=== PATIENT | female | born 1990 | race Caucasian/White ===

== ENCOUNTER 2019-09-01 07:22 | Day surgery (SDC) | payer OTHER, MEDICAID ==
--- NOTE | 2019-08-28 08:45 | CONSULTATION NOTE ---
Consultation Report: I saw this young lady today. She is a very pleasant. 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 Her mother answered the questions for me. The patient has had a few surgeries in the past without any anesthesia related complications. She is very active, plays sports. She denies any chest pain/pressure or SOB. She denies any respiratory problems. She has a good mouth opening, Malampati 1. She is otherwise relatively healthy.I discussed the anesthetic plan with the mother. The mother had no further questions for me.
[~2019-09-01 07:22] MED LIST: CEFOTETAN DISODIUM 1 GM VIAL ONE
[2019-09-01] MEDS ORDERED: LACTATED RINGERS 1,000 ML IV ONE ×2 (07:34→10:27)
[2019-09-01 08:01] LABS: HCG UR QUAL NEGATIVE
--- NOTE | 2019-09-01 08:22 | ANESTHESIA ---
Pre-Anesthesia VS, & Labs - Diagnosis symptomatic cholelithiasis - Procedure laparoscopic cholecystectomy Vital Signs: Temp Pulse Resp BP Pulse Ox 36 C L 72 12 133/79 H 97 09/01/19 07:40 09/01/19 07:40 09/01/19 07:40 09/01/19 07:40 09/01/19 07:40 Height 5 ft 1 in Weight (kg) 89.5 kg - NPO >8 hours - Is Patient ?: No - Lab Results Lab results reviewed: Yes Home Medications and Allergies Home Medications: Ambulatory Orders Ibuprofen [Motrin] 600 mg PO Q6H PRN 08/28/19 Omeprazole 20 mg PO DAILY 08/28/19 Ondansetron HCl [Zofran] 4 mg PO Q8HR PRN 08/28/19 Pnv No.95/Ferrous Fum/Folic AC [ Caplet] 1 each PO DAILY 08/28/19 Sertraline HCl [Zoloft] 100 mg PO BID 08/28/19 raNITIdine [Zantac] 150 mg PO BID PRN 08/28/19 Ibuprofen [Motrin] 600 mg PO Q6H PRN 08/28/19 Omeprazole 20 mg PO DAILY 08/28/19 Ondansetron HCl [Zofran] 4 mg PO Q8HR PRN 08/28/19 Pnv No.95/Ferrous Fum/Folic AC [ Caplet] 1 each PO DAILY 08/28/19 Sertraline HCl [Zoloft] 100 mg PO BID 08/28/19 raNITIdine [Zantac] 150 mg PO BID PRN 08/28/19 Allergies/Adverse Reactions: Allergies Allergy/AdvReac Type Severity Reaction Status Date / Time bacitracin Allergy "eats skin" Verified 08/28/19 08:56 [From Neosporin ([id number])] neomycin Allergy "eats skin" Verified 08/28/19 08:56 [From Neosporin ([id number])] polymyxin B Allergy "eats skin" Verified 08/28/19 08:56 [From Neosporin ([id number])] sulfamethoxazole Allergy Rash Verified 08/28/19 08:56 [From Bactrim] trimethoprim [From Bactrim] Allergy Rash Verified 08/28/19 08:56 Anes History & Medical History - Anesthetic History Anesthesia Complications: reports: No previous complications Family history of Anesthesia Complications: Denies Family history of Malignant Hyperthermia: Denies - Medical History Cardiovascular: reports: Valve disorder (ASD repair 2001) Pulmonary: reports: Pneumonia Gastrointestinal: reports: GERD (well controlled with meds), Colon polyps Urinary: reports: None Musculoskeletal: reports: Other Endocrine/Autoimmune: reports: Other Skin: reports: None Other Past Medical History: Arcadio syndrome - Surgical History General: Appendectomy, Colonoscopy, EGD Eyes Ears Nose Throat (EENT): Other Cardiothoracic: Other Exam General: Alert, Oriented x3, Cooperative Dental: WNL Mouth Opening: Greater than 4 Fingerbreadths Neck Mobility: Normal Mallampati classification: I Thyromental Distance: greater than 6 cm Respiratory: Lungs clear, Normal breath sounds, No respiratory distress Cardiovascular: Regular rate Neurological: Normal speech Mental/Cognitive Status: Alert/Oriented X3, Normal for patient Plan Anesthesia Type: General Consent for Procedure(s) Verified and Reviewed: Yes Code Status: Attempt Resuscitation ASA classification: 2-Mild systemic disease Is this case an emergency?: No
[2019-09-01] MEDS ORDERED: ONDANSETRON 4 MG/2 ML VIAL IVP PRN (08:24)
[2019-09-01] MEDS ORDERED: HYDROmorphone 0.5 MG/0.5 ML SYRINGE IVP PRN (08:24)
[2019-09-01] MEDS ORDERED: oxyCODONE 5 MG TABLET PO PRN (08:24)
[2019-09-01] MEDS ORDERED: BUPIVACAINE 0.5% PF 30 ML VIAL ONE (08:38)
[2019-09-01] MEDS ORDERED: LIDOCAINE 1%-EPI 1:100000 20 ML MDV ONE (08:38)
[2019-09-01] MEDS ORDERED: ROCURONIUM 50 MG/5 ML VIAL IVP ONE (08:43)
[2019-09-01] MEDS ORDERED: ONDANSETRON 4 MG/2 ML VIAL IVP ONE (08:43)
[2019-09-01] MEDS ORDERED: DEXAMETHASONE 4 MG/ML VIAL IVP ONE (08:43)
[2019-09-01] MEDS ORDERED: PROPOFOL 200 MG/20 ML VIAL IVP ONE (08:43)
[2019-09-01] MEDS ORDERED: NEOSTIGMINE 1 MG/1 ML 10 ML MDV IVP ONE (08:43)
[2019-09-01] MEDS ORDERED: GLYCOPYRROLATE 1 MG/5 ML VIAL IVP ONE (08:43)
[2019-09-01] MEDS ORDERED: fentaNYL 250 MCG/5 ML VIAL IVP ONE (08:43)
[2019-09-01] MEDS ORDERED: MIDAZOLAM 2 MG/2 ML VIAL IVP ONE (08:43)
[2019-09-01] MEDS ORDERED: KETOROLAC 30 MG/ML VIAL IVP ONE (08:43)
[2019-09-01] MEDS ORDERED: BUPIVACAINE 0.5% PF 30 ML VIAL SUBQ ONE ×2 (08:49)
[2019-09-01] MEDS ORDERED: LIDOCAINE MPF 1%-EPI 1:200000 30 ML VIAL SUBQ ONE ×2 (08:49)
--- NOTE | 2019-09-01 10:10 | OPERATIVE REPORT ---
Operative Report - General Procedure Date: 09/01/19 Pre-Op Diagnosis: Symptomatic Cholelithiasis Procedure Performed: Laparoscopic Cholecystectomy Post Op Diagnosis: same - Procedure Note Primary Surgeon: Ramandeep Madrid MD Anesthesia Provider: CORBIN Anesthesia Technique: General ET tube Pathology: gallbladder Estimated Blood Loss (mL): 10 Indications: 29yo F with symptomatic cholelithiasis. All risks, benefits, and alternatives reviewed with patient and her parents given her developmental delays and they all wish to proceed. Findings: mild chronic inflammation of gallbladder Complications: none - Other Other Information/Narrative: The patient was taken to the operating room and placed on operating table in supine position. The abdomen was prepped and draped in sterile fashion and a time out is performed with the team present. Local anesthesia was used to infiltrate each site prior to incision. Using a 15-blade scalpel, a small 5 mm incision was made just to the right of the umbilicus. Using a 5 mm Optiview camera port, the laparoscope was inserted into the abdomen. Once confirmed to be within the peritoneal cavity, the abdomen was insufflated with air. Initial diagnostic laparoscopy showed no injury from initial trocar placement. Three secondary trocars were then placed in the following locations: a 5mm trocar was then placed in the right lateral subcostal margin, a 5mm trocar in the right midclavicular line, and a 12 mm trocar was placed in the midline in the midepigastric area. A blunt grasper was then used to retract the fundus of the gallbladder up over the dome of the liver. A second blunt grasper was used to retract the infundibulum caudally. Using blunt dissection and electrocautery, the cystic duct and cystic artery were identified. These were circumferentially cleaned distally and proximally. The critical view was seen. Once adequate length was obtained, the cystic duct was triply clipped proximally and singly clipped distally. The cystic artery was doubly clipped proximally and singly clipped distally. The cystic duct and cystic artery were then transected using scissors. The clips were noted to completely traverse their respective structures with no evidence of bile leakage or bleeding. The remaining peritoneal attachments of the gallbladder and the liver bed were taken down using electrocautery. Once free, the gallbladder was placed into an EndoCatch retrieval bag and removed through the 12 mm port. This required minimal dilatation with a Sweta clamp in order to remove the specimen. The gallbladder was then passed off as a specimen. The right upper quadrant was suctioned free of any free fluid. The 12mm port site fascia was reapproximated using an EndoClose device and an 0-vicryl suture. The remainder of the local anesthesia was used to provide local analgesia over each of the port sites. The secondary trocars were removed under direct vision noting no bleeding. The abdomen was allowed to desufflate fully. The final trocar was removed. The skin incisions were then reapproximated using 4-0 Monocryl in an interrupted subcuticular fashion. The abdomen was cleaned and dried and Dermabond was placed over each of the incisions. The patient was awakened and taken to the postanesthesia care unit in stable condition. All counts were correct at the end of
[2019-09-01] MEDS ORDERED: ACETAMINOPHEN 1,000 MG/100 ML 100 ML IV ONE (10:25)
[2019-09-01] MEDS ORDERED: oxyCODONE 5 MG TABLET ONE (11:10)
[2019-09-01 11:17] VITALS: BP 134/74
== END 2019-09-01 07:23 | disposition home or self-care (01) ==
LOC: SDS 07:22
PROVIDERS: ATTEND Surgery
PROC: 0FT44ZZ Resection of Gallbladder, Percutaneous Endoscopic Approach (ICD-10-PCS; principal; 2019-09-01 08:30)
DX: K80.10 Calculus of gallbladder with chronic cholecystitis without obstruction (principal); Q78.1 Polyostotic fibrous dysplasia; K21.9 Gastro-esophageal reflux disease without esophagitis; F32.9 Major depressive disorder, single episode, unspecified
CPT/HCPCS: 47562; 81025; A9270; J0131; J7120